=== PATIENT | male | born 1990 | race Two or more races ===

== ENCOUNTER 2017-07-30 16:04 | Emergency (ER) | payer OTHER ==
[~2017-07-30] VITALS: Ht 175.3 cm; Wt 72.0 kg
[2017-07-30 16:08] VITALS: BP 126/75
== END 2017-07-30 17:43 | disposition home or self-care (01) ==
LOC: ED 17:35
DX: S00.83XA Contusion of other part of head, initial encounter (principal); G89.11 Acute pain due to trauma; W19.XXXA Unspecified fall, initial encounter; Y93.G1 Activity, food preparation and clean up; Y92.89 Other specified places as the place of occurrence of the external cause; Y99.8 Other external cause status
CPT/HCPCS: 70160; 99284